=== PATIENT | male | born 1965 | race Caucasian/White ===

== ENCOUNTER 2020-09-25 23:06 | Inpatient (IN) | payer MEDICARE, SELFPAY ==
[2020-09-25 23:10] VITALS: BMI 40.1
--- NOTE | 2020-09-25 23:30 | ED_ITS ---
HPI - Psych General: Chief Complaint: Psychiatric Symptoms Stated Complaint: 96 HOUR HOLD Time Seen by Provider: 09/25/20 23:10 Source: patient and EMS Mode of arrival: EMS Limitations: no limitations History of Present Illness: HPI Narrative: 55-year-old male who is here by EMS for hallucinations. Patient is under a 96-hour hold from [facility] police. Patient has called about his house multiple times and is seeing things and thinks that people are out to get him. Patient is very paranoid here as well states that he believes people are out to get him and there is been people at his house. He denies any suicidal or homicidal ideations. Associated symptoms: Reports auditory hallucinations; Deny depression Review of Systems Const: Denies: fever(s), chills, body aches or change in appetite Eyes: Denies: blurry vision or eye discomfort ENMT: Denies: throat pain or dental pain Card: Denies: chest pain Resp: Denies: dyspnea GI: Denies: abdominal pain, nausea, vomiting or diarrhea : Denies: dysuria Musc: Denies: neck pain or back pain Skin/Breast: Denies: rash Neuro: Denies: headache(s) Psych: Reports: paranoia and auditory hallucinations; Denies: depression Ruben/Lymph: Denies: easy bruising All/Imm: Denies: urticaria Physical Exam Const: COMMON NORMALS: no acute distress, patient oriented x3 and healthy appearing HENMT: COMMON NORMALS: normocephalic and atraumatic HEAD & SCALP: normocephalic and atraumatic Eye: COMMON NORMALS: Equal, round and reactive pupils present and EOMs intact bilaterally PUPIL: Yes Equal, round and reactive pupils present Neck/C-Spine: COMMON NORMALS: full ROM and supple Chest: COMMONS NORMALS: normal inspection of the chest and normal palpation of entire chest wall Resp: COMMON NORMALS: normal respiratory effort, No retractions, No use of accessory muscles and clear to auscultation bilaterally AUSCULTATION: clear to auscultation bilaterally Cardio: COMMON NORMALS: regular rate, regular rhythm and No murmurs present (Cardio) RATE: regular rate RHYTHM: regular rhythm GI: COMMON NORMALS: Normal to inspection, nondistended, normoactive bowel sounds present, Soft to palpation, non-tender and no masses PALPATION: Yes Soft to palpation Extremity: COMMON NORMALS: normal to inspection and full ROM Neuro: COMMON NORMALS: patient oriented x3, moves all extremities and no focal motor deficits Psych: COMMON NORMALS: mental status grossly normal and cooperative THOUGHT CONTENT: Yes Hallucination(s) present Skin: COMMON NORMALS: no rashes or lesions noted and no wounds GENERAL SKIN EXAM: no rashes or lesions noted MDM - Psych MDM Narrative: Medical decision making narrative: Ventura presents here with hallucinations along with methamphetamine abuse. Patient is under 96-hour hold from [facility]. I spoke to psychiatrist Dr. Soto and will admit. Rosi pabon is medically cleared and is stable for admission. Lab Data: Labs: Lab Results 09/25/20 09/25/20 09/25/20 Range/Units 23:25 23:25 23:28 WBC 11.3 H (4.0-10.0) 10^3/ uL RBC 4.87 (4.1-5.3) 10^6/u L Hgb 14.5 (11.7-16.6) g/dL Hct 43.4 (42.0-52.0) % MCV 89.1 (80-94) fL MCH 29.8 (28.0-34.0) pg MCHC 33.4 (30.0-36.0) g/dL RDW 13.9 (12.1-15.1) % Plt Count 294 (130-400) 10^3/c mm MPV 9.5 (7.4-10.4) fL Neut % (Auto) 74.9 % Lymph % (Auto) 15.9 % [place] % (Auto) 8.1 % Eos % (Auto) 0.3 % Baso % (Auto) 0.4 % Neut # (Auto) 8.50 H (1.8-7.7) 10^3/u L Lymph # (Auto) 1.8 (0.8-4.8) 10^3/u L [place] # (Auto) 0.9 (0.2-0.9) 10^3/u L Eos # (Auto) 0.0 (0.0-0.8) 10^3/u L Baso # (Auto) 0.1 (0.0-0.1) 10^3/u L Nucleated RBC % (a uto) 0 % Nucleated RBCs # 0.0 /100WBC Sodium 136 (136-145) mmol/L Potassium 3.2 L (3.5-5.1) mmol/L Chloride 96 L (98-107) mmol/L Carbon Dioxide 24 (22-29) mmol/L Anion Gap 19.2 H (5-19) BUN 31 H (6-20) mg/dL Creatinine 1.5 H (0.7-1.2) mg/dL GFR Calculation 48.8 L (90-130) mL/min Glucose 119 H (65-115) mg/dL Calculated Osmolal ity 290 (285-295) mOsm/k g Calcium 9.3 (8.5-10.5) mg/dL Total Bilirubin 1.0 (0.15-1.2) mg/dL AST 56 H (0-40) U/L ALT 46 H (0-41) U/L Alkaline Phosphata se 76 (40-130) IU/L Total Protein 8.4 (6.6-8.7) g/dL Albumin 4.6 (3.5-5.2) g/dL Globulin 3.8 (1.3-4.6) g/dL Salicylates < 0.3 L (3-10) mg/dL Urine Opiates Scre en Negative (Negative) ng/mL Acetaminophen < 5.0 L (10-30) ug/mL Ur Barbiturates Sc reen Negative (Negative) ng/mL Ur Phencyclidine S crn Negative (Negative) ng/mL Ur Amphetamines Sc reen Positive H (Negative) ng/mL U Benzodiazepines Scrn Positive H (Negative) ng/mL Urine Cocaine Scre en Negative (Negative) ng/mL U Marijuana (THC) Screen Negative (Negative) ng/mL Ethyl Alcohol < 10 (0-10) mg/dL Discharge Plan Discharge Patient Disposition: Admitted As Inpatient Clinical Impression: Hallucination, Methamphetamine abuse Condition: Stable Coding Level of Care Code ED Supervisor Partial Denture Department for Handy Fwjoseluis Exam Comprehensive
[2020-09-25 23:33] LABS: Basophils # 0.1 10^3/uL (0.0-0.1); Basophils % 0.4 %; Eosinophils % 0.3 %; Hematocrit 43.4 % (42.0-52.0); Hemoglobin 14.5 g/dL (11.7-16.6); Lymphocytes # 1.8 10^3/uL (0.8-4.8); Lymphocytes % 15.9 %; Mean Corpuscular HGB Conc 33.4 g/dL (30.0-36.0); Mean Corpuscular Hemoglobin 29.8 pg (28.0-34.0); Mean Corpuscular Volume 89.1 fL (80-94); Mean Platelet Volume 9.5 fL (7.4-10.4); Monocytes # 0.9 10^3/uL (0.2-0.9); Monocytes % 8.1 %; Neutrophils % 74.9 %; Nucleated Red Blood Cells % 0 %; Platelet Count 294 10^3/cmm (130-400); Red Blood Count 4.87 10^6/uL (4.1-5.3); Red Cell Distribution Width 13.9 % (12.1-15.1); White Blood Count 11.3 10^3/uL (4.0-10.0)
[2020-09-25 23:36] VITALS: BP 154/90; PULSE 87; RESP 17; TEMP 36.9; O2SAT 97
[2020-09-25 23:57] LABS: Amphetamines Screen Urine Positive (Negative); Barbiturates Screen Urine Negative (Negative); Benzodiazepines Screen Urine Positive (Negative); Cocaine Screen Urine Negative (Negative); Opiate Screen Urine Negative (Negative); PCP Screen Urine Negative (Negative); THC Screen Urine Negative (Negative)
[2020-09-26 00:10] LABS: Alanine Aminotransferase 46 U/L (0-41); Albumin Level 4.6 g/dL (3.5-5.2); Alkaline Phosphatase 76 IU/L (40-130); Anion Gap 19.2 (5-19); Aspartate Amino Transferase 56 U/L (0-40); Blood Urea Nitrogen 31 mg/dL (6-20); Calcium 9.3 mg/dL (8.5-10.5); Carbon Dioxide 24 mmol/L (22-29); Chloride 96 mmol/L (98-107); Globulin 3.8 g/dL (1.3-4.6); Glomerular Filtration Rate 48.8 mL/min (90-130); Glucose 119 mg/dL (65-115); Osmolality Calculated 290 mOsm/kg (285-295); Potassium 3.2 mmol/L (3.5-5.1); Sodium 136 mmol/L (136-145); Total Protein 8.4 g/dL (6.6-8.7)
[2020-09-26 00:15] LABS: Acetaminophen < 5.0 ug/mL (10-30); Alcohol Level < 10 mg/dL (0-10); Salicylate < 0.3 mg/dL (3-10)
[2020-09-26 01:55] VITALS: BP 138/75; BP 145/91; PULSE 101; PULSE 112; RESP 18; TEMP 36.4; O2SAT 91; O2SAT 96
[2020-09-26 06:00] VITALS: BP 145/91; PULSE 112; RESP 18; TEMP 36.4; O2SAT 91
--- NOTE | 2020-09-26 07:01 | PC.NURSE ---
pt requesting cough drops for dry, sore throat
[2020-09-26 14:00] VITALS: BP 132/78; PULSE 87; RESP 20; TEMP 36.6; O2SAT 97
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
[2020-09-26] MEDS: amlodipine 5 mg Tablet PO (18:02)
[2020-09-26] MEDS: cetylpyridinium Lozenge 1 EACH MUCOUS MEM (18:02)
[2020-09-26 18:20] VITALS: PULSE 111; RESP 18; O2SAT 94
[2020-09-26 20:21] VITALS: PULSE 97; RESP 17; TEMP 37.2; O2SAT 93
[2020-09-26] MEDS: cyclobenzaprine 10 mg Tablet PO (20:25)
[2020-09-26] MEDS: diclofenac 75 mg DR Tablet PO (20:26)
[2020-09-26] MEDS: lanolin oint 7 gm 1 APPLIC TOPICAL (21:02)
--- NOTE | 2020-09-27 01:44 | PC.NURSE ---
PM ASSESSMENT PT IS CALM, COOPERATIVE WITH STAFF, ASKED QUESTIONS ABOUT HIS 96 HOUR HOLD, INFORMATION PROVIDED TO PT. PT STATES, I HAD A BAD REACTION TO THE MEDICATION THAT I WAS TAKEN, NEXT THING I KNEW I WAS HERE. 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 PT DENIES SI/HI, DENIES AH/VH, PT IS TEARFUL THIS EVENING. V/S ARE WNL, HEART/.LUNG SOUNDS ARE WNL, AND PT VERBALIZED TO NURSE THAT HE IS WILLING TO DO WHAT EVER IT TAKES TO WORK WITH HIS PHYSICIAN/COUNSELING OR WHATEVER HE NEEDS TO BE SUCCESSFUL.
[2020-09-27 06:00] VITALS: BP 127/73; PULSE 88; RESP 19; TEMP 36.7; O2SAT 94
[2020-09-27] MEDS: hydroCHLOROthiazide 25 mg Tablet 12.5 MG PO (07:59)
[2020-09-27] MEDS: amlodipine 5 mg Tablet PO (07:59)
--- NOTE | 2020-09-27 08:04 | PC.NURSE ---
PRN XANAX 1 MG GIVEN PO PER PT C/O STATED DIZZINESS.
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
[2020-09-27 11:47] VITALS: BP 127/73; PULSE 88; RESP 19; TEMP 36.7; O2SAT 94
== END 2020-09-27 13:43 | disposition home or self-care (01) | DRG 882 ==
LOC: ER 09-26 00:26 → NP 09-26 07:02
PROVIDERS: Admitting Provider Psychiatry & Neurology Psychiatry; Emergency Provider Emergency Medicine; PCP Family Medicine; Visit Provider Psychiatry & Neurology Psychiatry
DX: F43.25 Adjustment disorder with mixed disturbance of emotions and conduct (principal); F15.10 Other stimulant abuse, uncomplicated; F41.9 Anxiety disorder, unspecified; F63.9 Impulse disorder, unspecified
CPT/HCPCS: 80053; 80306; 80307; 85025; 94640; 99285